=== PATIENT | male | born 1960 | race Caucasian/White ===

== ENCOUNTER 2022-10-27 09:59 | Emergency (ER) | payer BC, SELFPAY ==
[2022-10-27 10:00] VITALS: BP 151/89; PULSE 47; RESP 14; TEMP 35.7; O2SAT 100; BMI 29.0
--- NOTE | 2022-10-27 10:13 | EDS_ITS ---
HPI History of Present Illness Chief Complaint: Headache [facility] Medical History (Updated 10/27/22 @ 14:[address] Arthur Camarillo, DO) TMJ (temporomandibular joint disorder) Home Medications NK 10/27/22 [History Last Taken Unknown] Allergy/AdvReac Type Severity Reaction Status Date / Time No Known Allergies Allergy Verified 10/27/22 10:00 Social History Smoking Status: Never smoker EXAM Physical Exam Const Vital Signs: 10/27/22 10:00 10/27/22 11:04 10/27/22 12:17 Temperature 96.3 F L Temperature Source Temporal Pulse Rate 47 L 51 L Respiratory Rate 14 16 Blood Pressure 151/89 H 164/87 H Blood Pressure Mean 109 112 Pulse Ox 100 99 99 Oxygen Delivery Method Room Air Room Air Room Air 10/27/22 12:53 10/27/22 13:11 Temperature Temperature Source Pulse Rate 59 L 69 Respiratory Rate 23 H 22 H Blood Pressure 171/81 H 148/70 H Blood Pressure Mean 111 96 Pulse Ox 99 97 Oxygen Delivery Method Room Air MDM MDM MDM Narrative Medical decision making narrative: HISTORY OF PRESENT ILLNESS: 61-year-old male here with headache since Wednesday. Notes left-sided jaw pain that he endorses being indicative of TMJ syndrome. Notes some left-sided chest discomfort as well. Denies any fatigue, syncope focal loss of sensation numbness or weakness. No visual changes. No history of connective tissue diseases, Mehreen-Danlos or Marfan syndrome. Patient denies sudden onset of pain, no tearing sensation, no migratory symptoms, no new numbness, weakness or loss of sensation. Patient denies family history or personal history of Marfan syndrome or Mehreen-Danlos. the patient denies recent surgery in the last 4 weeks or immobilization in the last 3 days, denies previous diagnosis of DVT or PE, hemoptysis, unilateral leg swelling or malignancy with treatment the last 6 months. No estrogen use noted. Patient denies sudden onset or thunderclap headache, denies maximal intensity within 1 minute, vomiting, neck pain or stiffness, changes in vision, fever, history malignancy, syncope, seizures. REVIEW OF SYSTEMS: Pertinent positives: Headache Pertinent negatives: Focal weakness, syncope, loss of sensation. PHYSICAL EXAM: Nursing triage notes reviewed, Vital signs reviewed Constitutional: please see mdm HENT: MMM Eyes: Pupils equal round and reactive to light, Extraocular muscles intact Neck: No stridor, no JVD, full neck ROM Lungs: Clear to auscultation, No wheezing or rales. No increased work of breathing, no conversational dyspnea, no accessory muscle use, no nasal flaring. No respiratory distress noted Heart: Regular rate and rhythm, No murmurs, No rubs and No gallops, 2+ distal pulses (radial, femoral, posterior tibial) in all extremities Abdomen: Soft, there is no tenderness, rigidity, rebound or guarding, no obvious peritoneal signs, no palpable pulsatile abdominal masses, no auscultated abdominal bruit : No CVAT Extremit alert and oriented x3, neuro exam at baseline, cranial nerves II through XII are intact. No pain with extraocular muscle movement. There is negative test of skew. Normal speech. 5 of 5 strength in upper and lower extremities in flexion extension. Intact sensation to light touch in upper and lower extremity dermatomes. No truncal or extremity ataxia. No dysdiadochokinesia. Normal gait. 2+ reflexes. No meningeal signs. Negative Babinski. NIH of 0 Skin: No rash or lesions noted MEDICAL DECISION MAKING: Chief Complaint: Headache External records reviewed: No recent advanced imaging of the brain Factors affecting care: Hypothyroidism Social determinants of health: none no illicit drug use History obtained from others: Patient's Consults: [facility] CT surgery ALL IMAGES (IF OBTAINED) HAVE BEEN PERSONALLY REVIEWED AND INTERPRETED BY MYSELF. [facility] Narrative: Patient was hemodynamically stable, afebrile, nontoxic-appearing. Exam without obvious pulse deficits. No obvious focal neurologic deficits. NIH stroke scale of 0 I considered the following differential diagnosis: Subarachnoid hemorrhage, epidural hematoma, ICH, meningitis, carotid artery dissection, primary headache (cluster, tension, migraine). Given chest pain is concerned about PE versus dissection versus ACS Patient initial EKG had no evidence of myocardial ischemia. I obtained a CT scan of the head and CTA of the head and neck to rule out any intracranial bleeding or vascular abnormalities. Patient CTA of the head and neck showed evidence of aortic dissection. Then added on a CT scan of the patient's chest. This showed a type a dissection. Patient was given nicardipine for blood pressure control with a goal of systolic blood pressure being 100-120. Blood pressure difficult to control to add on nitroglycerin. Auto launch process was initiated and I spoke to [facility] as well as including clinic CT surgeon and CT surgery fellow. They accept the patient in transfer the patient was flown by helicopter to [facility] for definitive care. The patient and/or family, caregivers express understanding. The patient and/or family, caregivers agrees with the plan. Shared decision making: I will have a discussion with the patient and or visitors regarding risk/benefits of further testing or admission. They will be made aware of of the risk/benefits inherent in this decision they will be given the opportunity to voice understanding. Total critical care time today provided was at least 60 minutes. This excludes separately billable procedures. Critical care time (if documented) is secondary to the patient having high probability of clinically significant/life threatening deterioration in the patient's condition which required my urgent intervention. Lab Data Attestation: I reviewed the patient's lab results. Lab results narrative: CBC without leukocytosis, severe anemia, no thrombocytopenia. BMP without significant electrolyte abnormalities, no anion gap/endorgan hypoperfusion, noted mild elevation in creatinine but no obvious ENEDELIA Troponin is negative, no evidence of myocardial ischemia Labs: Laboratory Results - last 24 hr 10/27/22 11:10 WBC 9.0 RBC 4.18 L Hgb 13.0 Hct 40.9 MCV 97.8 H MCH 31.1 MCHC 31.8 L RDW Std Deviation 46.2 H RDW Coeff of Sugey 12.8 Plt Count 213 MPV 10.2 Immature Gran % (Auto) 0.300 Neut % (Auto) 71.6 H Lymph % (Auto) 15.9 L Tompkins % (Auto) 10.2 H Eos % (Auto) 1.6 Baso % (Auto) 0.4 Absolute Neuts (auto) 6.4 Absolute Lymphs (auto) 1.43 Nucleated RBC % 0 Sodium 138 Potassium 4.7 Chloride 110 H Carbon Dioxide 25.0 Anion Gap 3 L BUN 23 H Creatinine 1.50 H Estim Creat Clear Calc 55.78 Est GFR (MDRD) Af Amer 61 Est GFR (MDRD) Non-Af 51 L BUN/Creatinine Ratio 15.3 Glucose 107 H Calcium 8.9 Troponin I High Sens 30 Radiography Chest X-Ray - ED: Read by ED Physician and Read by Radiologist Diagnostic Testing: Clinical Impression(s) from Imaging Studies Chest X-Ray 10/27/22 10:40 IMPRESSION: No acute abnormality is seen. Electronically Signed: Marcellus Cornejo MD at 12:16 EDT , Head/Neck CTA 10/27/22 10:40 IMPRESSION: Type A intimal dissection of the ascending thoracic aorta. This extends to the level of the aortic arch. Calcific plaque at the origin of the right internal carotid artery causing between 50 and 69% stenosis. Calcific plaque at the origin of the left internal carotid artery causing less than 50% stenosis. N.B. : The above Results were Read Back by Marcellus Cornejo MD to Arthur Camarillo DO, and understanding confirmed on 10/27/2022 12:40:26 (ET). Electronically Signed: Marcellus Cornejo MD at 12:41 EDT , ADDENDUM: 10/27/22 1248 IMPRESSION: Type A intimal dissection of the ascending thoracic aorta. This extends to the level of the aortic arch. Calcific plaque at the origin of the right internal carotid artery causing between 50 and 69% stenosis. Calcific plaque at the origin of the left internal carotid artery causing less than 50% stenosis. N.B. : The above Results were Read Back by Marcellus Cornejo MD to Arthur Camarillo DO, and understanding confirmed on 10/27/2022 12:40:26 (ET). Electronically Signed: Marcellus Corneoj MD at 12:41 EDT , Chest CT 10/27/22 12:10 IMPRESSION: There is a type A intimal dissection of the ascending thoracic aorta to the level of the aortic arch. N.B. : The above Results were Read Back by Marcellus Cornejo MD to Arthur Camarillo DO, and understanding confirmed on 10/27/2022 12:36:14 (ET). Electronically Signed: Marcellus Cornejo MD at 12:38 EDT , ADDENDUM: 10/27/22 1245 IMPRESSION: There is a type A intimal dissection of the ascending thoracic aorta to the level of the aortic arch. N.B. : The above Results were Read Back by Marcellus Cornejo MD to Arthur Camarillo DO, and understanding confirmed on 10/27/2022 12:36:14 (ET). Electronically Signed: Marcellus Cornejo MD at 12:38 EDT , Chest x-ray read by myself shows no obvious evidence of acute intrathoracic pathology. Maybe a widened aortic knob. Discharge Plan Triage Chief Complaint: Headache ED Provider: Arthur Camarillo Dx/Rx/DC Orders Clinical Impression: Acute thoracic aortic dissection Prescriptions: No Action NK Primary Care Provider: Care Physician,No Primary Referrals: Care Physician,No Primary [Primary Care Provider] - Disposition Disposition: Acute Care Hospital Discharge Location: [facility] Discharge Date/Time: 10/27/22 13:47
--- NOTE | 2022-10-27 10:40 | EKG12_ITS ---
Test Reason : GENRAL Blood Pressure : / mmHG Vent. Rate : 045 BPM Atrial Rate : 045 BPM P-R Int : 182 ms QRS Dur : 092 ms QT Int : 448 ms P-R-T Axes : 049 034 092 degrees QTc Int : 387 ms Sinus bradycardia Possible Inferior infarct , age undetermined Abnormal ECG Confirmed by CONSTANZA ISIDRO, TERI ([id number]), slot editor BELINDA BUSTAMANTE ([id number]) on 10/28/2022 2:23:09 PM Referred By: Confirmed By:TERI APODACA MD
--- NOTE | 2022-10-27 10:40 | RAD_ITS ---
STUDY: X-RAY CHEST REASON FOR EXAM: Male, 61 years old. Chest pain TECHNIQUE: Single AP portable view of the chest. COMPARISON: Comparison is made with prior study dated September 27, 2014. FINDINGS: EKG electrodes are seen. Hyperinflation. The lungs are clear. The previously seen left upper lobe infiltrate has cleared. There is no demonstrated pleural abnormality. Normal size heart. Normal mediastinum and shahbaz. Normal visualized pulmonary arteries. There is atherosclerotic tortuosity of the aortic arch and descending thoracic aorta. There are diffuse degenerative changes of the visualized thoracic spine. Normal visualized ribs, clavicles, and shoulders. There is no demonstrated abnormality of the visualized soft tissue structures of the upper abdomen. RAD/Chest 1 View (Portable) IMPRESSION: No acute abnormality is seen. Electronically Signed: Marcellus Cornejo MD at 12:16 EDT ,
--- NOTE | 2022-10-27 10:40 | CT_ITS ---
STUDY: CTA HEAD AND NECK WITH CONTRAST REASON FOR EXAM: Male, 61 years old. [place], left arm pain r/o dissection RADIATION DOSAGE (If Supplied By Facility): CTDIvol = ( 27.64 ) mGy, DLP = ( 2312.73 ) mGycm TECHNIQUE: CT angiography was performed with a multi-detector CT scanner. Data acquisition was obtained from the skull base through the vertex following intravenous administration of IV 100mL Isovue-370. MIP images were reconstructed from the axial data set. Post-processing of the angiographic images was performed, with multiplanar reformation and 3D reconstruction. Individualized dose optimization techniques were used for this CT. COMPARISON: No relevant priors. FINDINGS: Normal bilateral petrous carotid arteries. Normal right cavernous carotid artery with a normal supraclinoid bifurcation. Normal left cavernous carotid artery with a normal supraclinoid bifurcation. Normal right A1 segments of the anterior cerebral artery. Normal left A1 segments of the anterior cerebral artery. Normal intact anterior communicating artery (ACOM). Normal bilateral A2 segments of the anterior cerebral arteries. Normal right M1 and M2 segments of the middle cerebral arteries, with a normal M1 bifurcation. Normal left M1 and M2 segments of the middle cerebral arteries, with a normal M1 bifurcation. Normal right posterior communicating artery (PCOM). Normal left posterior communicating artery (PCOM). Normal bilateral vertebral arteries. Normal basilar artery with a normal basilar bifurcation. The visualized bilateral superior cerebellar (SCA) arteries are normal. Normal bilateral P1, P2 and visualized P3 segments of the posterior cerebral arteries. There is no demonstrated aneurysm of the [place] of [place]. Punctate calcifications in the basal ganglia bilaterally. This is a normal variant in the adult patient. Mucosal thickening of the ethmoid sinuses bilaterally. AORTIC ARCH: Type A intimal dissection of the ascending thoracic aorta to the level of the aortic arch. Normal origins of the brachiocephalic, left common carotid, and left subclavian arteries. RIGHT CAROTID ARTERIES: Normal right common carotid artery (CCA). Normal right common carotid bulb. There is moderate atherosclerotic plaque formation of the origin of the right internal carotid artery with an estimated stenosis of 50-69% stenosis. Normal visualized cervical portion of the right internal carotid artery. Normal origin of the right external carotid artery (ECA). LEFT CAROTID ARTERIES: Normal left common carotid artery (CCA). Normal left common carotid bulb. There is moderate atherosclerotic plaque formation of the origin of the left internal carotid artery with an estimated stenosis of 50-69% stenosis. Normal visualized cervical portion of the left internal carotid artery. Normal origin of the left external carotid artery (ECA). VERTEBRAL ARTERIES: Normal bilateral vertebral arteries. CT/CTA Head AND Neck W/ Contrast IMPRESSION: Type A intimal dissection of the ascending thoracic aorta. This extends to the level of the aortic arch. Calcific plaque at the origin of the right internal carotid artery causing between 50 and 69% stenosis. Calcific plaque at the origin of the left internal carotid artery causing less than 50% stenosis. N.B. : The above Results were Read Back by Marcellus Cornejo MD to Arthur Camarillo DO, and understanding confirmed on 10/27/2022 12:40:26 (ET). Electronically Signed: Marcellus Cornejo MD at 12:41 EDT ,
[2022-10-27 11:04] VITALS: O2SAT 99
[2022-10-27] MEDS: Acetaminophen 325 MG Tablet PO (11:12)
[2022-10-27] MEDS: Metoclopramide 10 MG/2 ML Vial 5 MG IV (11:12)
[2022-10-27 11:26] LABS: Absolute Lymphocyte Count 1.43 X10^3/uL (0.83-4.51); Absolute Neutrophil Count 6.4 X10^3/uL (2.0-7.7); Basophil# 0.04 X10^3/uL; Basophil% 0.4 % (0-1); Eosinophil# 0.14 X10^3/uL; Eosinophils% 1.6 % (0-5); Hematocrit 40.9 % (40-54); Lymphocyte # 1.43 X10^3/ul (0.83-4.51); Lymphocyte % 15.9 % (19-41); Mean Corp Hgb Conc 31.8 g/dL (32-36); Mean Corpuscular Hgb 31.1 pg (27.0-32.0); Mean Corpuscular Volume 97.8 fL (80-94); Mean Platelet Vol. 10.2 fl (6.2-12.0); Monocyte# 0.92 X10^3/uL; Monocyte% 10.2 % (0-10); NRBC Flagged by Analyzer 0 % (0-5); Neutrophil # 6.44 X10^3/uL (2.7-7.7); Neutrophil % 71.6 % (47-70); Platelet Count 213 K/mm3 (150-450); RBC Distribution Width CV 12.8 % (11.6-14.6); RBC Distribution Width SD 46.2 fl (35.1-43.9); Red Blood Count 4.18 M/mm3 (4.6-6.2)
[2022-10-27 11:43] LABS: Anion Gap 3 (5-15); BUN 23 mg/dL (7-18); BUN/Creat Ratio 15.3 RATIO (10-20); Calcium,Total 8.9 mg/dL (8.5-10.1); Chloride 110 mmol/L (98-107); EST Glomerular Filtration Rate 51 mL/min (>60); Est Glom Filt Rate - Afr Amer 61 mL/min (>60); Estimated Creatinine Clearance 55.78 ml/min; Glucose 107 mg/dL (74-106); Potassium 4.7 mmol/L (3.5-5.1); Sodium Level 138 mmol/L (136-145); Troponin-I HS (w/2H Reflex) 30 pg/mL (3.0-78.0)
--- NOTE | 2022-10-27 12:10 | CT_ITS ---
STUDY: CT CHEST WITH CONTRAST REASON FOR EXAM: Male, 61 years old. Possible aortic dissection. Back pain and upper extremity pain. RADIATION DOSAGE (If Supplied By Facility): CTDIvol = ( 27.64 ) mGy, DLP = ( 2312.73 ) mGycm TECHNIQUE: Transaxial imaging was performed following intravenous administration of IV 100mL Isovue-370. Individualized dose optimization techniques were used for this CT. COMPARISON: No relevant priors. FINDINGS: CHEST The lungs are normal. There is no demonstrated pleural abnormality. There are calcifications of the coronary arteries. Normal mediastinum. Normal hilar regions. Normal unenhanced pulmonary arteries. There is evidence of a type A intimal dissection of the ascending thoracic aorta to the level of the aortic arch. There is dilatation of the ascending thoracic aorta with a transverse dimension of 42 mm. There are multi-level degenerative changes of the thoracic spine. There is no demonstrated abnormality of the visualized upper abdomen. CT/Chest WITH Contrast IMPRESSION: There is a type A intimal dissection of the ascending thoracic aorta to the level of the aortic arch. N.B. : The above Results were Read Back by Marcellus Cornejo MD to Arthur Camarillo DO, and understanding confirmed on 10/27/2022 12:36:14 (ET). Electronically Signed: Marcellus Cornejo MD at 12:38 EDT ,
[2022-10-27 12:17] VITALS: BP 164/87; PULSE 51; RESP 16; O2SAT 99
[2022-10-27] MEDS: Nicardipine HCl-0.9% Sod Chlor 20 MG/200 ML IV.SOLN 50 MG CONT INF (12:49)
--- NOTE | 2022-10-27 12:52 | ED.RN ---
1249- NICARDIPINE HYDROCHLORIDE 20MG IN 200ML STARTED
[2022-10-27 12:53] VITALS: BP 171/81; PULSE 59; RESP 23; O2SAT 99
--- NOTE | 2022-10-27 13:08 | ED.RN ---
1308- NICARDIPINE HYDROCHLORIDE INCREASE FROM 5MG/HR TO 10MG/HR.
[2022-10-27 13:11] VITALS: BP 148/70; PULSE 69; RESP 22; O2SAT 97
[2022-10-27 13:22] LABS: Reflex Troponin-HS? (from REC) Y
--- NOTE | 2022-10-27 13:33 | ED.RN ---
Per Dr. Camarillo. Nicardipine to go up by 5mg intervals.
--- NOTE | 2022-10-27 13:52 | ED.RN ---
[facility] flight transport here at 1339. Report given. Crew left at 1347.
--- NOTE | 2022-10-27 13:58 | ED.RN ---
Report given to Tri on J Unit.
== END 2022-10-27 13:47 | disposition short-term general hospital (02) ==
PROVIDERS: Emergency Provider Emergency Medicine; Visit Provider Emergency Medicine
DX: I71.010 Dissection of ascending aorta (principal); I71.011 Dissection of aortic arch; E03.9 Hypothyroidism, unspecified; R68.84 Jaw pain; I65.21 Occlusion and stenosis of right carotid artery; R51.9 Headache, unspecified
CPT/HCPCS: 70496; 70498; 71045; 71260; 80048; 84484; 85025; 93005; 96365; 96375; 99285; J7040; Q9967; A4216